=== PATIENT | female | born 1975 | race Two or more races ===

== ENCOUNTER 2021-02-10 20:56 | Emergency (ER) | payer OTHER ==
[~2021-02-10] VITALS: Ht 160 cm; Wt 56.0 kg
[~2021-02-10 20:56] MED LIST: PNV1TABL65 PO
[2021-02-10 22:14] VITALS: BP 138/83
== END 2021-02-10 23:39 | disposition home or self-care (01) ==
LOC: ER 20:56
DX: S61.411A Laceration without foreign body of right hand, initial encounter (principal); X58.XXXA Exposure to other specified factors, initial encounter; Y93.89 Activity, other specified; Y92.89 Other specified places as the place of occurrence of the external cause; Y99.8 Other external cause status
CPT/HCPCS: 99281